=== PATIENT | female | born 1990 | race African-American/Black ===

== ENCOUNTER 2019-06-27 08:35 | Emergency (ER) | payer OTHER ==
[~2019-06-27] VITALS: Ht 160 cm; Wt 89.4 kg
[2019-06-27 08:45] VITALS: BP 150/80
[2019-06-27] MEDS ORDERED: KETOROLAC TROMETHAMINE INJ 30 MG/ML VIAL ONE (09:09)
[2019-06-27] MEDS ORDERED: KETOROLAC TROMETHAMINE INJ 60 MG/2 ML VIAL IM ONE (09:30)
== END 2019-06-27 09:32 | disposition home or self-care (01) ==
LOC: ER 08:38
DX: M54.5 Low back pain (principal); X50.0XXA Overexertion from strenuous movement or load, initial encounter; Y93.89 Activity, other specified; Y92.89 Other specified places as the place of occurrence of the external cause; Y99.0 Civilian activity done for income or pay
CPT/HCPCS: 96372; 99283; J1885